=== PATIENT | female | born 1970 | race Two or more races ===

== ENCOUNTER 2018-01-14 17:21 | Emergency (ER) | payer OTHER ==
[~2018-01-14] VITALS: Ht 170.2 cm; Wt 104.7 kg
[2018-01-14] MEDS ORDERED: FLEXERIL10 MG PO (20:29)
[2018-01-14] MEDS ORDERED: MOTRIN800 MG PO (20:29)
[2018-01-14 20:52] VITALS: BP 160/91
== END 2018-01-14 20:54 | disposition home or self-care (01) ==
LOC: EME 17:21
DX: S09.90XA Unspecified injury of head, initial encounter (principal); M62.838 Other muscle spasm; W01.0XXA Fall on same level from slipping, tripping and stumbling without subsequent striking against object, initial encounter; Y93.K1 Activity, walking an animal; E11.9 Type 2 diabetes mellitus without complications; Z79.82 Long term (current) use of aspirin; Z88.2 Allergy status to sulfonamides
CPT/HCPCS: 70450; 72125; 99281; 99284